=== PATIENT | male | born 1950 | race Caucasian/White ===

== ENCOUNTER 2019-09-05 15:58 | Inpatient (IN) | payer MEDICARE, MEDICAID ==
[~2019-09-05] VITALS: Ht 177.8 cm; Wt 125.2 kg
[~2019-09-05 15:58] MED LIST: ASPI-1264 PO; ATOR20TA PO; COR3.125T PO; FENO145T38 PO; FURO40TA4 PO; LEVO175T52 PO; LORA1TAB PO; POTA8TAB46 PO
--- NOTE | 2019-09-05 16:30 | NUR ---
PT STARTED DISCLOSING C/O SOB AND ACTIVITY INTOLERANCE OVER PAST FEW MONTHS. EKG REVEALED PT IN A-FIB AND PT DENIES HX OF DX OF A-FIB. ACS PROTOCOL INITIATED AND INFORMED ED MD CORLEY.
[2019-09-05 16:37] LABS: BASOPHILS % (AUTO) 0.4 % (0-1); EOSINOPHILS % (AUTO) 0.4 % (0-6); HEMATOCRIT 37.9 % (42.0-52.0); HEMOGLOBIN 12.3 g/dl (14.0-17.9); LYMPHOCYTES % (AUTO) 20.2 % (21-51); MEAN CORPUSCULAR HEMOGLOBIN 30.6 PG (27.0-31.0); MEAN CORPUSCULAR HGB CONC 32.4 g/dL (33.0-36.5); MEAN CORPUSCULAR VOLUME 94.2 FL (78-98); MEAN PLATELET VOLUME 7.3 FL (7.4-10.4); MONOCYTES # (AUTO) 0.6 X10'3 (0-0.9); MONOCYTES % (AUTO) 12.1 % (2-12); NEUTROPHILS # (AUTO) 3.4 X10'3 (1.8-7.7); NEUTROPHILS % (AUTO) 66.9 % (42-75); PLATELET COUNT 150 X10'3 (140-440); RED BLOOD COUNT 4.02 X10'6 (4.70-6.10); WHITE BLOOD COUNT 5.1 X10'3 (4.5-11.0)
[2019-09-05 16:41] LABS: CLARITY,URINE CLEAR (Clear); COLOR,URINE STRAW (Yellow); GLUCOSE, URINE NEGATIVE (Neg); KETONES,URINE NEGATIVE (Neg); LEUKOCYTE ESTERASE ,URINE NEGATIVE (Neg); NITRITES, URINE NEGATIVE (Neg); OCCULT BLOOD,URINE NEGATIVE (Neg); PH,URINE 8.5 (4.8-8.0); PROTEIN,URINE TRACE mg/dl (Neg); UROBILINOGEN,URINE 0.2 E.U/dL (0.2-1.0)
[2019-09-05 16:43] LABS: ALANINE AMINOTRANSFERASE 28 U/L (12-78); ALBUMIN 3.3 G/DL (3.4-5.0); ALBUMIN/GLOBULIN RATIO 0.7 (1.1-1.5); ALKALINE PHOSPHATASE 79 IU/L (46-116); ANION GAP 1 (8-16); ASPARTATE AMINO TRANSFERASE 38 U/L (10-37); BILIRUBIN,TOTAL 0.7 MG/DL (0.1-1.0); BLOOD UREA NITROGEN 8 MG/DL (7-18); BUN/CREATININE RATIO 10.4 (5.4-32.0); CALCIUM 9.2 MG/DL (8.5-10.1); CHLORIDE 101 MMOL/L (99-107); CREATININE 0.77 MG/DL (0.60-1.10); GLUCOSE 107 MG/DL (70-104); POTASSIUM 3.9 MMOL/L (3.5-5.1); SODIUM 142 MMOL/L (135-145); TOTAL CARBON DIOXIDE 39.8 MMOL/L (24-32); TOTAL PROTEIN 8.2 G/DL (6.4-8.2); eGFR > 90 ML/MIN
[2019-09-05 16:47] LABS: UA COLLECTION TYPE URINAL
[2019-09-05 16:47] LABS: LIPASE 247 U/L (73-393)
[2019-09-05 16:48] LABS: BACTERIA,URINE NONE SEEN /HPF (Neg); MUCUS STRANDS FEW /LPF (Neg); RBC,URINE 0-2 /HPF (0-2); SQUAMOUS EPITHELIAL CELL,UR NONE SEEN /LPF (FEW); WBC,URINE NONE SEEN /HPF (0-4)
[2019-09-05] MEDS ORDERED: iohexol 300mg/ml 100ml inj. ONE (17:18)
[2019-09-05] MEDS ORDERED: CELE-85 PO (18:45)
[2019-09-05] MEDS ORDERED: HYDROcodone/acetaminophen 5mg/325mg tablet PO ONE (19:25)
[2019-09-05] MEDS ORDERED: ondansetron 4mg rapidly disintigrating tab PO ONE (19:25)
--- NOTE | 2019-09-05 19:44 | NUR ---
Hospitalist at bedside consulting with pt. for possible admission.
[2019-09-05] MEDS ORDERED: morphine 2 MG/ML inj. syringe IV PRN ×2 (20:00)
[2019-09-05] MEDS ORDERED: magnesium 4gm in 100ml NS 100 ML IV PRN (20:00)
[2019-09-05] MEDS ORDERED: potassium CL 10mEq/100ml bag 100 ML IV PRN ×2 (20:00)
[2019-09-05] MEDS ORDERED: ondansetron/PF 4mg/2ml inj IV PRN (20:00)
[2019-09-05] MEDS ORDERED: potassium Cl 20 mEq SR tablet PO PRN ×2 (20:00)
[2019-09-05] MEDS ORDERED: magnesium Cl slow-release 64mg tablet PO PRN (20:00)
[2019-09-05] MEDS ORDERED: magnesium 2GM in 50ml NS 50 ML IV PRN (20:00)
[2019-09-05] MEDS ORDERED: HYDROcodone/acetaminophen 5mg/325mg tablet PO PRN (20:00)
[2019-09-05] MEDS ORDERED: acetaminophen 325mg tablet PO PRN ×2 (20:00)
[2019-09-05] MEDS: furosemide 40mg/4ml inj IV SCH (20:25)
[2019-09-05] MEDS: heparin, porcine 5000 units/ml vial SQ SCH (20:25)
[2019-09-05] MEDS: docusate sod 100mg capsule PO SCH (20:26)
[2019-09-05] MEDS: K and/or MAG REPLACEMENT MC SCH (20:26)
[2019-09-05] MEDS ORDERED: temazepam 15mg capsule PO PRN (21:00)
--- NOTE | 2019-09-05 21:00 | NUR ---
Patient in room PCU 3017. I have received report from James PEREZ in ER and had the opportunity to ask questions and assume patient care.
--- NOTE | 2019-09-05 21:15 | NUR ---
Pt arrived on floor. Two Rn skin check completed. Pt DARTed and made comfortable in room. All belongings accounted for and placed by bedside table per patient. Pt hooked up to Tele monitor.
[2019-09-05 23:00] VITALS: BP 118/78
[2019-09-05] MEDS ORDERED: metoprolol tartrate 25mg tablet PO ONE (23:55)
[2019-09-06 02:00] VITALS: BP 144/92
--- NOTE | 2019-09-06 03:59 | NUR ---
HR EXCEEDS 160 BPM WITH ACTIVITY. MD NOTIFIED AND 25 MG PO METOPROLOL ONCE, AND BID STARTING THIS MORNING. HR HAS GONE DOWN AND IS AFIB IN 100'S. WILL CONTINUE TO MONITOR CLOSELY. Addendum: 09/06/19 at 0409 by Carlee Patel RN UTILIZED THERAPEUTIC COMMUNICATION REGARDING PATIENT'S IMPULSIVE BEHAVIOR. PATIENT VERBALLY ACKNOWLEDGED DANGERS OF GETTING UP QUICKLY WITHOUT ASSISTANCE. PATIENT HAS CONTINUED TO GET UP, BUT INCIDENCES HAVE DECREASED. NON-COMPLAINT CARE PLAN ADDED TO PLAN OF CARE. WILL CONTINUE TO MONITOR CLOSELY.
[2019-09-06 06:18] LABS: BASOPHILS % (AUTO) 0.4 % (0-1); EOSINOPHILS % (AUTO) 0.9 % (0-6); HEMATOCRIT 38.2 % (42.0-52.0); HEMOGLOBIN 12.2 g/dl (14.0-17.9); LYMPHOCYTES # (AUTO) 1.2 X10'3 (1.1-4.8); LYMPHOCYTES % (AUTO) 24.3 % (21-51); MEAN CORPUSCULAR HGB CONC 31.8 g/dL (33.0-36.5); MEAN CORPUSCULAR VOLUME 94.4 FL (78-98); MEAN PLATELET VOLUME 7.7 FL (7.4-10.4); MONOCYTES # (AUTO) 0.7 X10'3 (0-0.9); MONOCYTES % (AUTO) 13.3 % (2-12); NEUTROPHILS % (AUTO) 61.1 % (42-75); PLATELET COUNT 153 X10'3 (140-440); RED BLOOD COUNT 4.05 X10'6 (4.70-6.10); RED CELL DISTRIBUTION WIDTH 16.3 % (11.5-14.5); WHITE BLOOD COUNT 4.9 X10'3 (4.5-11.0)
--- NOTE | 2019-09-06 06:30 | NUR ---
Patient in room PCU 3017. I have received report from Kristyn PEREZ and had the opportunity to ask questions and assume patient care.
--- NOTE | 2019-09-06 06:33 | NUR ---
ORIENTEE documentation: I have reviewed and agree with all interventions, assessments performed and documented by CHRIS ANDRE.
[2019-09-06 06:34] LABS: ALANINE AMINOTRANSFERASE 29 U/L (12-78); ALBUMIN 3.3 G/DL (3.4-5.0); ALBUMIN/GLOBULIN RATIO 0.6 (1.1-1.5); ALKALINE PHOSPHATASE 82 IU/L (46-116); ANION GAP -1 (8-16); ASPARTATE AMINO TRANSFERASE 38 U/L (10-37); BILIRUBIN,TOTAL 0.6 MG/DL (0.1-1.0); BLOOD UREA NITROGEN 9 MG/DL (7-18); BUN/CREATININE RATIO 10.8 (5.4-32.0); CALCIUM 9.4 MG/DL (8.5-10.1); CHLORIDE 101 MMOL/L (99-107); CHOL/HDL RATIO 2.3 (0.00-4.99); CHOLESTEROL 147 MG/DL (0-200); CREATININE 0.83 MG/DL (0.60-1.10); GLUCOSE 92 MG/DL (70-104); HDL CHOLESTEROL 65 MG/DL (35-60); LDL CHOLESTEROL 62 MG/DL (50-100); MAGNESIUM 1.6 MG/DL (1.5-2.4); POTASSIUM 3.7 MMOL/L (3.5-5.1); SODIUM 143 MMOL/L (135-145); TOTAL PROTEIN 8.5 G/DL (6.4-8.2); TRIGLYCERIDES 60 MG/DL (20-135); eGFR > 90 ML/MIN
--- NOTE | 2019-09-06 06:34 | NUR ---
Problems reprioritized. Patient report given, questions answered & plan of care reviewed with YOSI PEREZ.
--- NOTE | 2019-09-06 06:39 | NUR ---
Patient in room PCU 3017. I have received report from Kristyn PEREZ and had the opportunity to ask questions and assume patient care.
--- NOTE | 2019-09-06 06:45 | NUR ---
Page to u PAGER ID: [phone] MESSAGE: Gabi Perri [phone]. Patient Bakari Jiang 3017B. Critical CO2 43.0. Night nurse reports continued SOB, please advise
--- NOTE | 2019-09-06 06:57 | NUR ---
New orders from Dr. Horvath - RT eval and treat
[2019-09-06 07:34] VITALS: BP 124/83
[2019-09-06] MEDS: furosemide 40mg/4ml inj IV SCH ×2 (07:41→20:56)
[2019-09-06] MEDS: heparin, porcine 5000 units/ml vial SQ SCH ×2 (07:42→20:56)
[2019-09-06] MEDS: aspirin 81mg tablet.DR PO SCH (07:42)
[2019-09-06] MEDS: levoTHYROXINE 75mcg tablet PO SCH (07:42)
[2019-09-06] MEDS: metoprolol tartrate 25mg tablet PO SCH ×2 (07:43→20:57)
[2019-09-06] MEDS: docusate sod 100mg capsule PO SCH ×2 (07:43→20:57)
[2019-09-06] MEDS: atorvastatin 20mg tablet PO SCH (07:44)
[2019-09-06] MEDS: fenofibrate 145mg tablet PO SCH (07:44)
[2019-09-06] MEDS: K and/or MAG REPLACEMENT MC SCH ×2 (07:45→20:00)
[2019-09-06] MEDS: HYDROcodone/acetaminophen 10/325mg tab PO PRN ×4 (07:47→20:58)
[2019-09-06] MEDS ORDERED: ipratropium/albuterol 3ml nebule NEB PRN (08:10)
[2019-09-06] MEDS ORDERED: furosemide 40mg/4ml inj IV SCH (10:00)
[2019-09-06] MEDS: diatr meglu/diatrizoate 30ml oral sol.-(3 dose) bottle PO SCH ×3 (10:20→16:16)
--- NOTE | 2019-09-06 10:25 | NUR ---
Page to ADALBERTO PAGER ID: [phone] MESSAGE: Gabi PETR [phone]. Patient Apolinar [id number]. Patient already has Lasix BID 40 mg ordered, and was given this AM. Did you want him to have another dose per your new order? Please advise
[2019-09-06 12:09] VITALS: BP 106/74
--- NOTE | 2019-09-06 16:15 | NUR ---
Patient off unit for CT scan.
[2019-09-06 16:21] VITALS: BP 105/77
[2019-09-06 18:00] VITALS: BP 117/80
--- NOTE | 2019-09-06 18:00 | NUR ---
Patient in room PCU 3017. I have received report from Gabi PEREZ and had the opportunity to ask questions and assume patient care.
--- NOTE | 2019-09-06 18:36 | NUR ---
Problems reprioritized. Patient report given, questions answered & plan of care reviewed with Kristyn PEREZ and Sierra PEREZ. Patient stable at transfer of care.
--- NOTE | 2019-09-06 18:40 | NUR ---
Patient in room PCU 3016V. I have received report from CHRIS DELUCA and had the opportunity to ask questions and assume patient care. PATIENT RESTING IN BED WITH 4L NC. PATIENT ALERT AND ORIENTED X4. SALINE LOCKED AT THIS TIME. WILL CONTINUE TO MONITOR CLOSELY.
[2019-09-06 22:00] VITALS: BP 129/89
[2019-09-07] MEDS: HYDROcodone/acetaminophen 10/325mg tab PO PRN ×5 (01:05→23:14)
[2019-09-07 02:00] VITALS: BP 124/80
[2019-09-07 05:48] LABS: BASOPHILS % (AUTO) 0.6 % (0-1); EOSINOPHILS # (AUTO) 0.1 X10'3 (0-0.9); EOSINOPHILS % (AUTO) 1.9 % (0-6); HEMATOCRIT 35.8 % (42.0-52.0); HEMOGLOBIN 11.6 g/dl (14.0-17.9); LYMPHOCYTES # (AUTO) 1.3 X10'3 (1.1-4.8); LYMPHOCYTES % (AUTO) 28.9 % (21-51); MEAN CORPUSCULAR HEMOGLOBIN 30.5 PG (27.0-31.0); MEAN CORPUSCULAR HGB CONC 32.3 g/dL (33.0-36.5); MEAN CORPUSCULAR VOLUME 94.4 FL (78-98); MEAN PLATELET VOLUME 7.5 FL (7.4-10.4); MONOCYTES # (AUTO) 0.8 X10'3 (0-0.9); MONOCYTES % (AUTO) 17.4 % (2-12); NEUTROPHILS # (AUTO) 2.3 X10'3 (1.8-7.7); NEUTROPHILS % (AUTO) 51.2 % (42-75); PLATELET COUNT 152 X10'3 (140-440); RED BLOOD COUNT 3.79 X10'6 (4.70-6.10); WHITE BLOOD COUNT 4.5 X10'3 (4.5-11.0)
[2019-09-07 06:02] LABS: ALANINE AMINOTRANSFERASE 23 U/L (12-78); ALBUMIN 3.1 G/DL (3.4-5.0); ALBUMIN/GLOBULIN RATIO 0.6 (1.1-1.5); ALKALINE PHOSPHATASE 75 IU/L (46-116); ASPARTATE AMINO TRANSFERASE 40 U/L (10-37); BILIRUBIN,TOTAL 0.7 MG/DL (0.1-1.0); BLOOD UREA NITROGEN 14 MG/DL (7-18); BUN/CREATININE RATIO 15.9 (5.4-32.0); CALCIUM 9.1 MG/DL (8.5-10.1); CHLORIDE 99 MMOL/L (99-107); CREATININE 0.88 MG/DL (0.60-1.10); GLUCOSE 90 MG/DL (70-104); MAGNESIUM 1.5 MG/DL (1.5-2.4); POTASSIUM 3.8 MMOL/L (3.5-5.1); SODIUM 144 MMOL/L (135-145); TOTAL PROTEIN 8.1 G/DL (6.4-8.2); eGFR 86 ML/MIN
[2019-09-07 06:12] LABS: ANION GAP -5 (8-16)
--- NOTE | 2019-09-07 06:12 | NUR ---
Problems reprioritized. Patient report given, questions answered & plan of care reviewed with Stella PEREZ .
[2019-09-07 06:14] LABS: TOTAL CARBON DIOXIDE > 50 MMOL/L (24-32)
--- NOTE | 2019-09-07 06:15 | NUR ---
ORIENTEE documentation: I have reviewed and agree with all interventions, assessments performed and documented by CHRIS ANDRE.
[2019-09-07 07:00] VITALS: BP 131/81
--- NOTE | 2019-09-07 07:03 | NUR ---
Patient in room PCU 3017. I have received report from Geoff PEREZ and Brooke RN and had the opportunity to ask questions and assume patient care.
[2019-09-07] MEDS: K and/or MAG REPLACEMENT MC SCH ×2 (08:00→20:00)
[2019-09-07] MEDS: docusate sod 100mg capsule PO SCH ×2 (08:19→19:49)
[2019-09-07] MEDS: fenofibrate 145mg tablet PO SCH (08:19)
[2019-09-07] MEDS: atorvastatin 20mg tablet PO SCH (08:19)
[2019-09-07] MEDS: metoprolol tartrate 25mg tablet PO SCH ×2 (08:20→19:50)
[2019-09-07] MEDS: aspirin 81mg tablet.DR PO SCH (08:20)
[2019-09-07] MEDS: levoTHYROXINE 75mcg tablet PO SCH (08:20)
[2019-09-07] MEDS: heparin, porcine 5000 units/ml vial SQ SCH ×2 (08:21→19:49)
[2019-09-07] MEDS: furosemide 40mg/4ml inj IV SCH ×2 (08:22→19:49)
[2019-09-07 11:00] VITALS: BP 123/77
--- NOTE | 2019-09-07 11:59 | NUR ---
PAGER ID: [phone] MESSAGE: [id number] Bakari Jiang, patients son is here and would like to speak to you directly. He is having a difficult time deciding on SNF vs home. Stella PEREZ [phone]
--- NOTE | 2019-09-07 13:44 | NUR ---
[id number] Apolinar Villegas - 2nd choice is [facility], 3rd [facility]. Stella PEREZ
[2019-09-07 15:00] VITALS: BP 128/86
[2019-09-07 18:00] VITALS: BP 130/87
--- NOTE | 2019-09-07 18:17 | NUR ---
Problems reprioritized. Patient report given, questions answered & plan of care reviewed with Agustina PEREZ. Pt. sitting in bed eating dinner, offers no complaints.
--- NOTE | 2019-09-07 18:17 | NUR ---
Patient in room PCU 3017. I have received report from Stella PEREZ and Reina PEREZ and had the opportunity to ask questions and assume patient care.
--- NOTE | 2019-09-07 18:51 | NUR ---
Patient in room PCU 3013v. I have received report from CHRIS ZAYAS AND CHRIS RODRIGUES and had the opportunity to ask questions and assume patient care. PATIENT AWAKE FOR BEDSIDE REPORT WITH SON AT BEDSIDE. ON 3L NASAL CANNULA. PATIENT OFFERS NO COMPLAINTS AT THIS TIME. WILL CONTINUE TO MONITOR CLOSELY.
[2019-09-07 22:00] VITALS: BP 113/78
[2019-09-08 02:00] VITALS: BP 117/81
--- NOTE | 2019-09-08 03:38 | NUR ---
Pt removed his own IV and is refusing new IV.
--- NOTE | 2019-09-08 03:39 | NUR ---
PAGER ID: [phone] MESSAGE: [phone] Bakari Jiang Pt ripped out IV and is refusing new IV. Pt is supposed to d/c to home tomorrow. Has IV 40mg lasix BID may we switch order to PO? Brooke PEREZ ext [phone]
--- NOTE | 2019-09-08 03:41 | NUR ---
New orders from Dr Morrell. Switch IV lasix 40mg BID to PO due to pt refusal to have new IV placed.
[2019-09-08 05:56] LABS: BASOPHILS % (AUTO) 0.7 % (0-1); EOSINOPHILS # (AUTO) 0.1 X10'3 (0-0.9); EOSINOPHILS % (AUTO) 1.9 % (0-6); HEMATOCRIT 37.9 % (42.0-52.0); HEMOGLOBIN 12.2 g/dl (14.0-17.9); LYMPHOCYTES # (AUTO) 1.2 X10'3 (1.1-4.8); LYMPHOCYTES % (AUTO) 27.6 % (21-51); MEAN CORPUSCULAR HEMOGLOBIN 30.6 PG (27.0-31.0); MEAN CORPUSCULAR HGB CONC 32.2 g/dL (33.0-36.5); MEAN CORPUSCULAR VOLUME 95.1 FL (78-98); MEAN PLATELET VOLUME 7.2 FL (7.4-10.4); MONOCYTES # (AUTO) 0.8 X10'3 (0-0.9); MONOCYTES % (AUTO) 17.8 % (2-12); NEUTROPHILS # (AUTO) 2.3 X10'3 (1.8-7.7); PLATELET COUNT 150 X10'3 (140-440); RED BLOOD COUNT 3.99 X10'6 (4.70-6.10); RED CELL DISTRIBUTION WIDTH 16.3 % (11.5-14.5); WHITE BLOOD COUNT 4.5 X10'3 (4.5-11.0)
[2019-09-08 06:08] LABS: ALANINE AMINOTRANSFERASE 27 U/L (12-78); ALBUMIN 3.2 G/DL (3.4-5.0); ALBUMIN/GLOBULIN RATIO 0.7 (1.1-1.5); ALKALINE PHOSPHATASE 77 IU/L (46-116); ASPARTATE AMINO TRANSFERASE 39 U/L (10-37); BILIRUBIN,TOTAL 0.5 MG/DL (0.1-1.0); BLOOD UREA NITROGEN 12 MG/DL (7-18); BUN/CREATININE RATIO 14.3 (5.4-32.0); CALCIUM 8.9 MG/DL (8.5-10.1); CHLORIDE 97 MMOL/L (99-107); CREATININE 0.84 MG/DL (0.60-1.10); MAGNESIUM 1.7 MG/DL (1.5-2.4); POTASSIUM 3.7 MMOL/L (3.5-5.1); SODIUM 142 MMOL/L (135-145); TOTAL PROTEIN 8.1 G/DL (6.4-8.2); eGFR > 90 ML/MIN
[2019-09-08 06:11] LABS: GLUCOSE 95 MG/DL (70-104)
[2019-09-08 06:23] LABS: ANION GAP -1 (8-16)
[2019-09-08 06:39] LABS: TOTAL CARBON DIOXIDE 46.2 MMOL/L (24-32)
--- NOTE | 2019-09-08 06:48 | NUR ---
Orientee documentation: I have reviewed and agree with all interventions, assessments performed and documented by CHRIS Cox.
--- NOTE | 2019-09-08 06:51 | NUR ---
Patient in room PCU 3017. I have received report from Geoff PEREZ and had the opportunity to ask questions and assume patient care.
[2019-09-08 07:00] VITALS: BP 121/81
--- NOTE | 2019-09-08 07:14 | NUR ---
Paged Dr. Bills. Bakari Jiang. [id number]. FYI critical CO2 of 46.2. C02 was as 50.0 yesterday. Neil [phone]
[2019-09-08] MEDS: K and/or MAG REPLACEMENT MC SCH (08:00)
[2019-09-08] MEDS ORDERED: furosemide 40mg tablet PO SCH (08:00)
[2019-09-08] MEDS ORDERED: FURO40TA4 PO (08:43)
[2019-09-08] MEDS: HYDROcodone/acetaminophen 10/325mg tab PO PRN (08:56)
[2019-09-08] MEDS: docusate sod 100mg capsule PO SCH (08:57)
[2019-09-08] MEDS: metoprolol tartrate 25mg tablet PO SCH (08:57)
[2019-09-08] MEDS: heparin, porcine 5000 units/ml vial SQ SCH (08:58)
[2019-09-08] MEDS: aspirin 81mg tablet.DR PO SCH (08:58)
[2019-09-08] MEDS: atorvastatin 20mg tablet PO SCH (08:58)
[2019-09-08] MEDS: fenofibrate 145mg tablet PO SCH (08:58)
[2019-09-08] MEDS: levoTHYROXINE 75mcg tablet PO SCH (09:06)
[2019-09-08 11:00] VITALS: BP 112/75
--- NOTE | 2019-09-08 13:00 | NUR ---
Patient safe for discharge per MD orders, discharge instructions reviewed with patient and questions answered. Patient has appointment with PCP PA Dr. Cheung. Attempted to schedule appointment with Dr. Perera, but his office is closed from [phone]. Per charge poster, discharge patient and try to schedule appointment after 1330 and call patient with appointment date and time. Tele DC, patient had no PIV
--- NOTE | 2019-09-08 14:08 | NUR ---
Appointment scheduled with Dr. Perera on 08/28/19 at 1100. Called and notified patient.
== END 2019-09-08 13:07 | disposition home health service (06) | DRG 392 ==
LOC: ER 15:58 → ED HOLD 19:57 → PCU 3S 20:45
PROVIDERS: ADMIT Internal Medicine; ATTEND Internal Medicine
PROC: BW211ZZ Computerized Tomography (CT Scan) of Abdomen and Pelvis using Low Osmolar Contrast (ICD-10-PCS; 2019-09-05)
PROC: BW211ZZ Computerized Tomography (CT Scan) of Abdomen and Pelvis using Low Osmolar Contrast (ICD-10-PCS; principal; 2019-09-06)
DX: R10.9 Unspecified abdominal pain (principal); J96.11 Chronic respiratory failure with hypoxia; K43.9 Ventral hernia without obstruction or gangrene; K74.60 Unspecified cirrhosis of liver; I50.813 Acute on chronic right heart failure; I48.91 Unspecified atrial fibrillation; E03.9 Hypothyroidism, unspecified; E78.5 Hyperlipidemia, unspecified; G47.30 Sleep apnea, unspecified; I11.0 Hypertensive heart disease with heart failure; J44.9 Chronic obstructive pulmonary disease, unspecified; E66.01 Morbid (severe) obesity due to excess calories; Z79.82 Long term (current) use of aspirin; Z79.899 Other long term (current) drug therapy; Z86.711 Personal history of pulmonary embolism; Z91.14 Patient's other noncompliance with medication regimen; Z99.81 Dependence on supplemental oxygen; Z68.39 Body mass index [BMI] 39.0-39.9, adult
CPT/HCPCS: 36415; 71045; 74177; 80053; 80061; 81001; 83605; 83690; 83735; 83880; 84443; 84484; 85025; 87040; 87081; 93005; 93306; 94640; 94760; 99285; G0378; J1644; J1940; Q9963; Q9967